=== PATIENT | female | born 1990 | race Caucasian/White ===

== ENCOUNTER 2017-10-22 13:56 | Emergency (ER) | payer BC, MEDICAID ==
[2017-10-22 15:17] LABS: BASO % 0.5 % (0.0-2.0); EOS # 0.5 K/uL (0.0-0.7); EOS % 6.4 % (0.0-4.0); HEMOGLOBIN 13.5 g/dL (11.0-16.0); LYMPH # 1.8 K/uL (1.0-4.3); LYMPH % 24.5 % (20.0-40.0); MEAN CELL VOLUME 84.9 fL (81.0-99.0); MEAN CORPUSCULAR HEMOGLOBIN 30.1 pg (27.0-31.0); MEAN CORPUSCULAR HGB CONC 35.4 g/dL (33.0-37.0); MEAN PLATELET VOLUME 7.7 fL (7.2-11.7); MONO # 0.4 K/uL (0.0-0.8); MONO % 5.4 % (0.0-10.0); NEUT # 4.6 K/uL (1.8-7.0); NEUT % 63.2 % (50.0-75.0); RBC 4.5 Mil/uL (3.80-5.20); WHITE BLOOD COUNT 7.3 K/uL (4.8-10.8)
[2017-10-22 15:30] LABS: HCG,QUALITATIVE URINE POSITIVE (NEGATIVE)
[2017-10-22 15:35] LABS: SQUAMOUS EPITHIAL 3 /hpf (0-5); URINE AMORPHOUS SEDIMENT RARE /ul (<OCC); URINE BACTERIA OCC (<OCC); URINE BILIRUBIN NEGATIVE (NEGATIVE); URINE BLOOD NEGATIVE (NEGATIVE); URINE CLARITY Hazy (Clear); URINE COLOR Yellow (YELLOW); URINE GLUCOSE (UA) NORMAL (Normal); URINE LEUKOCYTE ESTERASE NEG Leu/uL (Negative); URINE NITRATE NEGATIVE (NEGATIVE); URINE PROTEIN NEGATIVE (NEGATIVE)
[2017-10-22 15:37] LABS: BLOOD UREA NITROGEN 10 mg/dL (7-17); CALCIUM 8.7 mg/dl (8.6-10.4); GFR AFRICAN-AMERICAN > 60; GFR NON-AFRICAN AMERICAN > 60
--- NOTE | 2017-10-22 16:05 | US ---
PROCEDURE: OB Pelvic Ultrasound HISTORY: VAGINAL BLEEDING, PAIN COMPARISON: None available. FINDINGS: UTERUS: Single Live intrauterine gestation. CRL 3 mm, equal to 5 weeks 6 days Gestational sac diameter 13 mm equal to 5 weeks 4 days age (Ultrasound estimated): 5 weeks 5 days Date of delivery (Ultrasound estimated) : 06/19/2018 Heart rate: 104 bpm. Dulce Maria-gestational hemorrhage: None. Uterus measures 9.6 x 4.6 x 6.5 cm. No mass CERVIX: Long and closed. No cervical abnormality seen. RIGHT OVARY: Measures 3.5 x 2.6 x 2.3 cm. No mass. Normal flow. LEFT OVARY: Measures 4.8 x 1.7 x 2.5 cm. Corpus luteum cyst, 1.6 x 1.4 x 1.3 cm, with characteristic peripheral hypervascularity. Normal flow. FREE FLUID: None. OTHER FINDINGS: None. IMPRESSION: Single live intrauterine gestation of approximately 5 weeks 5 days gestational age. No subchorionic hemorrhage. heart rate 104 beats per minute. Cervix long and closed.
--- NOTE | 2017-10-22 16:08 | C.PDOC ---
History Of Present Illness 27 yo female , LNMP 08/07/17, no hx of ectopic , come in for evaluation of lower abdominal cramping pain associated with vaginal spotting gradually developed since yesterday. Pt admits, " vaginal spotting only noted in AM", reports resolved at this time.Otherwise, pt denies fever, chills, recent illness, CP, SOB, dyspnea, diaphoresis, V/D, back pain, UTI sx. Ambulate to Ed for evaluation, not in any apparent distress. Time Seen by Provider: 10/22/17 14:41 Chief Complaint (Nursing): Female Genitourinary History Per: Patient Past Medical History Reviewed: Historical Data, Nursing Documentation, Vital Signs Vital Signs: Last Vital Signs Temp 98.1 F 10/22/17 14:26 Pulse 70 10/22/17 14:26 Resp 17 10/22/17 14:26 BP 133/80 10/22/17 14:26 Pulse Ox 100 10/22/17 16:08 - Medical History PMH: No Chronic Diseases Surgical History: No Surg Hx Family History: States: Unknown Family Hx - Social History Hx Tobacco Use: No Hx Alcohol Use: No Hx Substance Use: No - Immunization History Hx Tetanus Toxoid Vaccination: No Hx Influenza Vaccination: No Hx Pneumococcal Vaccination: No Review Of Systems Except As Marked, All Systems Reviewed And Found Negative. Constitutional: Negative for: Fever, Chills ENT: Negative for: Throat Pain, Throat Swelling Cardiovascular: Negative for: Chest Pain, Palpitations Respiratory: Negative for: Cough, Shortness of Breath, Wheezing Gastrointestinal: Positive for: Abdominal Pain. Negative for: Nausea, Vomiting , Diarrhea Genitourinary: Negative for: Dysuria, Frequency, Incontinence, Vaginal Bleeding Musculoskeletal: Negative for: Neck Pain, Back Pain Skin: Negative for: Rash Neurological: Negative for: Weakness, Numbness, Altered Mental Status, Headache , Dizziness Physical Exam - Physical Exam Appears: Well, Non-toxic, No Acute Distress Skin: Normal Color, Warm, Dry, No Rash Head: Normacephalic Eye(s): bilateral: PERRL Nose: No Flaring, No Discharge Oral Mucosa: Moist Throat: Normal, No Erythema, No Drooling Neck: Trachea Midline, Supple Cardiovascular: Rhythm Regular, No Murmur, No JVD Respiratory: No Stridor, No Wheezing Gastrointestinal/Abdominal: Soft, No Tenderness, No Distention, No Guarding, No Rebound Back: No CVA Tenderness Extremity: Normal ROM, No Pedal Edema, No Deformity, No Swelling Neurological/Psych: Oriented x3, Normal Speech ED Course And Treatment - Laboratory Results Result Diagrams: 10/22/17 15:12 10/22/17 15:12 Lab Interpretation: Normal Urine POC: Positive O2 Sat by Pulse Oximetry: 100 Pulse Ox Interpretation: Normal - CT Scan/US US - Transvaginal Other Rad Studies (CT/US): Read By Radiologist, Radiology Report Reviewed CT/US Interpretation: PROCEDURE: OB Pelvic Ultrasound. HISTORY: VAGINAL BLEEDING, PAIN. COMPARISON: None available. FINDINGS: UTERUS: Single Live intrauterine gestation. CRL 3 mm, equal to 5 weeks 6 days. Gestational sac diameter 13 mm equal to 5 weeks 4 days. age (Ultrasound estimated): 5 weeks 5 days. Date of delivery (Ultrasound estimated) : 06/19/2018. Heart rate: 104 bpm. Dulce Maria-gestational hemorrhage: None. Uterus measures 9.6 x 4.6 x 6.5 cm. No mass. CERVIX: Long and closed. No cervical abnormality seen. RIGHT OVARY: Measures 3.5 x 2.6 x 2.3 cm. No mass. Normal flow. LEFT OVARY: Measures 4.8 x 1.7 x 2.5 cm. Corpus luteum cyst, 1.6 x 1.4 x 1.3 cm, with characteristic peripheral hypervascularity. Normal flow. FREE FLUID: None. OTHER FINDINGS: None. IMPRESSION: Single live intrauterine gestation of approximately 5 weeks 5 days gestational age. No subchorionic hemorrhage. heart rate 104 beats per minute. Cervix long and closed. Progress Note: On re-eval, pt is afebrile, hemodynamicaly stable. Non-toxic,. Ambulatory in ED with stable gait. Neck; Supple, (-) JVD. Lungs: CTA B/L, BS equal B/L. Abd: benign, (-) guarding, (-) rebound. Back: (-) CVA tenderness. Blood work review and appears normal. UA- normal. US results review (+) single IUP 5w5d, no acute findings. Beta quant review and c/w with US results. results review and discussed with pt. Pt has clinical findings c/w threatened . Pt advised. ref. to F/u with [facility]NAGER in 1-2 days for re- eavl. return to ED if any worsening or new changes. Disposition Counseled Patient/Family Regarding: Studies Performed, Diagnosis, Need For Followup - Disposition [facility] Disposition: HOME/ ROUTINE Disposition Time: 16:20 Condition: STABLE Additional Instructions: PELVIC REST, NO SEXUAL ACTIVITY FOR 1 WEEK VITAMINS FOLLOW UP WITH [facility] E[facility] MANAGER IN 2 DAYS FOR RE-EVALUATION. RETURN TO ED IF ANY WORSENING OR NEW CHANGES. Instructions: Threatened Miscarriage (ED) Forms: [email or web address] ([email or web address]) - Clinical Impression Clinical Impression: Threatened
[2017-10-22 17:01] VITALS: BP 132/77; PULSE 77; RESP 19; TEMP 98.9; O2SAT 99
== END 2017-10-22 17:00 | disposition home or self-care (01) ==
LOC: C.ER 13:56
DX: O20.0 Threatened abortion (principal); Z3A.01 Less than 8 weeks gestation of pregnancy

== ENCOUNTER 2018-05-10 09:41 | Emergency (ER) | payer BC ==
[2018-05-10 09:47] VITALS: RESP 16; TEMP 98; O2SAT 99
--- NOTE | 2018-05-10 10:31 | C.PDOC ---
History Of Present Illness 27 y/o female presents to the ED with complaints of right shoulder pain that began this morning. She denies any fall or blunt trauma. Patient states she picked up her child this morning, adjusted him toward her right side, and felt a pop in the shoulder. She is now complaining of shoulder pain and decreased ROM. Pain is described as non-radiating, rated 8/10, and worsening with movement. Time Seen by Provider: 05/10/18 09:41 Chief Complaint (Nursing): Upper Extremity Problem/Injury History Per: Patient History/Exam Limitations: no limitations Onset/Duration Of Symptoms: Hrs Current Symptoms Are (Timing): Still Present Severity: Moderate Pain Scale Rating Of: 8 Past Medical History Reviewed: Historical Data, Nursing Documentation, Vital Signs Vital Signs: Last Vital Signs Temp 98 F 05/10/18 09:45 Pulse 81 05/10/18 09:45 Resp 16 05/10/18 09:45 BP 121/79 05/10/18 09:45 Pulse Ox 99 05/10/18 10:55 Surgical History: No Surg Hx Family History: States: Unknown Family Hx - Social History Hx Tobacco Use: No Hx Alcohol Use: No Hx Substance Use: No - Immunization History Hx Tetanus Toxoid Vaccination: No Hx Influenza Vaccination: No Hx Pneumococcal Vaccination: No Review Of Systems Except As Marked, All Systems Reviewed And Found Negative. Cardiovascular: Negative for: Chest Pain Musculoskeletal: Positive for: Shoulder Pain (right). Negative for: Arm Pain, Hand Pain Skin: Negative for: Bruising Neurological: Negative for: Weakness, Numbness Physical Exam - Physical Exam Appears: Non-toxic, No Acute Distress Skin: Normal Color, Warm Head: Atraumatic, Normacephalic Eye(s): bilateral: Normal Inspection Neck: Normal ROM Back: No Vertebral Tenderness, Muscle Spasm (significant muscle spasms along the right trapezius) Extremity: Tenderness (to the right humoral head and distal end of right clavicle), Capillary Refill (less than 2 sec), No Deformity, No Swelling, Other (Decreased ROM secondary to pain, with full passive ROM of the shoulder) Pulses: Left Radial: Normal, Right Radial: Normal Neurological/Psych: Oriented x3, Normal Speech ED Course And Treatment O2 Sat by Pulse Oximetry: 99 (RA) Pulse Ox Interpretation: Normal Medical Decision Making Medical Decision Making: Impression: Right shoulder pain Initial Plan: --Motrin 600 mg PO --Right clavicle x-ray --Right shoulder x-ray Progress/Updates: X-rays viewed by me, and are negative for acute fracture or dislocation. Counseled patient regarding diagnosis and treatment plan. Patient will be discharged home with prescriptions for Motrin and Valium. Advised patient to follow up with PMD for further evaluation. Disposition Counseled Patient/Family Regarding: Studies Performed, Diagnosis, Need For Followup, Rx Given - Disposition Disposition: HOME/ ROUTINE Disposition Time: 10:53 Condition: STABLE Prescriptions: diaZEpam [Valium] 5 mg PO TID #12 tab Ibuprofen [Motrin] 600 mg PO TID #15 tab Instructions: Shoulder Sprain (DC) Forms: General Discharge Instructions, [facility] (Hebrew), Work Excuse - POA Present On Arrival: None - Clinical Impression Clinical Impression: Sprain of shoulder, right - Scribe Statement The provider has reviewed the documentation as recorded by the Scribe (Gabi Reed) Provider Attestation: All medical record entries made by the Scribe were at my direction and personally dictated by me. I have reviewed the chart and agree that the record accurately reflects my personal performance of the history, physical exam, medical decision making, and the department course for this patient. I have also personally directed, reviewed, and agree with the discharge instructions and disposition.
[2018-05-10 11:05] VITALS: BP 125/79; PULSE 69
--- NOTE | 2018-05-10 11:54 | RAD ---
Date of service: 05/10/2018 PROCEDURE: Radiographs of the right clavicle. HISTORY: pain and decreased motion COMPARISON: None. FINDINGS: RIGHT CLAVICLE: No fracture or focal lesion. JOINTS: Right acromioclavicular possible lateral clavicular tiny microcystic subcortical subarticular early arthrosis patient 27 years of age. Glenohumeral joints are grossly unremarkable. SOFT TISSUES: Grossly unremarkable. OTHER FINDINGS: None. IMPRESSION: No fracture or dislocation Possible lateral clavicular subcortical microcystic earlier arthrosis -versus a top normal variant.
--- NOTE | 2018-05-10 11:55 | RAD ---
Date of service: 05/10/2018 PROCEDURE: Radiographs of the Right Shoulder HISTORY: pain and decreased motion COMPARISON: No prior. FINDINGS: BONES: 2 mm rounded bone island over humeral head. No fracture. JOINTS: Right acromioclavicular possible lateral clavicular tiny microcystic subcortical subarticular early arthrosis patient 27 years of age. Glenohumeral joint- grossly unremarkable. SOFT TISSUES: Normal. OTHER FINDINGS: None. IMPRESSION: No fracture or dislocation. Right acromioclavicular possible lateral clavicular tiny microcystic subcortical subarticular early arthrosis patient 27 years of age. Glenohumeral joint-grossly unremarkable.
== END 2018-05-10 11:04 | disposition home or self-care (01) ==
LOC: C.ER 09:41
DX: S43.401A Unspecified sprain of right shoulder joint, initial encounter (principal); X58.XXXA Exposure to other specified factors, initial encounter

== ENCOUNTER 2018-08-01 13:10 | Emergency (ER) | payer BC ==
[2018-08-01 13:58] VITALS: TEMP 99.6; O2SAT 100
[2018-08-01] MEDS ORDERED: Sodium Chloride 0.9% 1,000 ML IV ONE (14:46)
--- NOTE | 2018-08-01 14:46 | C.PDOC ---
History Of Present Illness 27 year old female presents to the ED for evaluation of lower abdominal bloating since yesterday. Patient states symptoms are constant and localized. Patient states her "period should be coming soon." She denies nausea, vomiting, yamilet rrhea, UTI symptoms, or fever. LOWER ABD BLOATING SINCE YEST. CONSTANT LOCALIZED. PS "PERIOD SHOULD BE COMING SOON". NO NVD, UTI SX. NO FEVER EXAM MILD DIST NONTOXIC ABD +LLQ TEND MILD DIST SOFT NO RG REMAINDER NEG Time Seen by Provider: 08/01/18 14:10 Chief Complaint (Nursing): Abdominal Pain History Per: Patient History/Exam Limitations: no limitations Onset/Duration Of Symptoms: Hrs Current Symptoms Are (Timing): Still Present Location Of Pain/Discomfort: Other (lower abdomen ) Radiation Of Pain To:: None Quality Of Discomfort: Other (bloating ) Associated Symptoms: denies: Fever, Chills, Nausea, Vomiting, Diarrhea, Urinary Symptoms Additional History Per: Patient Past Medical History Reviewed: Historical Data, Nursing Documentation, Vital Signs Vital Signs: Last Vital Signs Temp 99.6 F 08/01/18 13:54 Pulse 99 H 08/01/18 13:54 Resp 20 08/01/18 13:54 BP 107/78 08/01/18 13:54 Pulse Ox 100 08/01/18 13:54 - Medical History PMH: No Chronic Diseases Surgical History: No Surg Hx Family History: States: Unknown Family Hx - Social History Hx Tobacco Use: No Hx Alcohol Use: No Hx Substance Use: No - Immunization History Hx Tetanus Toxoid Vaccination: No Hx Influenza Vaccination: No Hx Pneumococcal Vaccination: No Review Of Systems Constitutional: Negative for: Fever, Chills Gastrointestinal: Positive for: Other (lower abdominal bloating ). Negative for: Nausea, Vomiting, Diarrhea Genitourinary: Negative for: Dysuria, Frequency, Hematuria Physical Exam - Physical Exam Appears: Non-toxic, Other (in mild distress ) Skin: Normal Color, Warm, Dry Head: Atraumatic, Normacephalic Eye(s): bilateral: Normal Inspection Oral Mucosa: Moist Neck: Supple Chest: Symmetrical, No Deformity, No Tenderness Cardiovascular: Rhythm Regular, No Murmur Respiratory: Normal Breath Sounds, No Rales, No Rhonchi, No Wheezing Gastrointestinal/Abdominal: Soft, Tenderness (to left lower quadrant ), Distention (mild ), No Guarding, No Rebound Extremity: Normal ROM, Capillary Refill (less than 2 seconds ) Neurological/Psych: Oriented x3, Normal Speech, Normal Cognition ED Course And Treatment - Laboratory Results Result Diagrams: 08/01/18 14:56 08/01/18 14:56 O2 Sat by Pulse Oximetry: 100 (on RA) Pulse Ox Interpretation: Normal Progress Note: Bloodwork, urinalysis, CT A/P ordered and reviewed. Magnesium Sulfate IVP, Morphine IVP, Reglan IVP, Toradol IVP, and IV Fluids given. Progress - Re-Evaluation Re-evaluation Note: 08/01/18 17:11 MIGRAINE, ABD PAIN RESOLVED. CT REVIEWED - Data Reviewed Data Reviewed: Lab, Diagnostic imaging, Old records Disposition Counseled Patient/Family Regarding: Studies Performed, Diagnosis, Need For Followup, Rx Given - Disposition Referrals: YOUR,PMD [Other] Disposition: HOME/ ROUTINE Disposition Time: 17:11 Condition: IMPROVED Prescriptions: Metoclopramide [Reglan] 1 tab PO TID PRN #25 tab PRN Reason: Nausea/Vomiting Naproxen 500 mg PO BID #30 tab Instructions: Ovarian Cyst (DC) Forms: [employer] (Uruguayan), Work Excuse - Clinical Impression Clinical Impression: Abdominal bloating, Migraine, Ovarian cyst - Scribe Statement The provider has reviewed the documentation as recorded by the Scribe (Samantha Jain) Provider Attestation: All medical record entries made by the Scribe were at my direction and personally dictated by me. I have reviewed the chart and agree that the record accurately reflects my personal performance of the history, physical exam, [facility] decision making, and the department course for this patient. I have also personally directed, reviewed, and agree with the discharge instructions and disposition.
[2018-08-01] MEDS ORDERED: Sodium Chloride 0.9% 1,000 ML IV STA (14:52)
[2018-08-01] MEDS ORDERED: Magnesium Sulfate 1 gm in D5W 1 GM/100 ML BAG IVPB STA (14:52)
[2018-08-01 15:00] LABS: BASO % 0.2 % (0.0-2.0); EOS # 0.2 K/uL (0.0-0.7); EOS % 1.2 % (0.0-4.0); HEMOGLOBIN 13.4 g/dL (11.0-16.0); LYMPH # 1.2 K/uL (1.0-4.3); LYMPH % 7.9 % (20.0-40.0); MEAN CELL VOLUME 85.5 fL (81.0-99.0); MEAN CORPUSCULAR HGB CONC 33.9 g/dL (33.0-37.0); MEAN PLATELET VOLUME 8.3 fL (7.2-11.7); MONO # 0.7 K/uL (0.0-0.8); MONO % 4.6 % (0.0-10.0); NEUT # 12.7 K/uL (1.8-7.0); NEUT % 86.1 % (50.0-75.0); PLATELET COUNT 230 K/uL (130-400); RBC 4.61 Mil/uL (3.80-5.20); RED CELL DISTRIBUTION WIDTH 13.1 % (11.5-14.5); WHITE BLOOD COUNT 14.7 K/uL (4.8-10.8)
[2018-08-01 15:07] LABS: SQUAMOUS EPITHIAL 2 /hpf (0-5); URINE BILIRUBIN NEGATIVE (NEGATIVE); URINE BLOOD NEGATIVE (NEGATIVE); URINE CLARITY Clear (Clear); URINE COLOR Yellow (YELLOW); URINE GLUCOSE (UA) NORMAL (Normal); URINE LEUKOCYTE ESTERASE TRACE Leu/uL (Negative); URINE PROTEIN NEGATIVE (NEGATIVE); URINE UROBILINOGEN NORMAL mg/dL (0.2-1.0)
[2018-08-01] MEDS ORDERED: Sodium Chloride 0.9% 1,000 ML ONE (15:08)
[2018-08-01] MEDS ORDERED: Magnesium Sulfate 1 gm in D5W 1 GM/100 ML BAG IVPB ONE (15:08)
[2018-08-01 15:12] LABS: ALB/GLOB RATIO 1.4 (1.0-2.1); ALBUMIN 4.4 g/dL (3.5-5.0); ALT/SGPT 54 U/L (9-52); AST/SGOT 40 U/L (14-36); BLOOD UREA NITROGEN 9 mg/dL (7-17); CALCIUM 8.6 mg/dl (8.6-10.4); GFR NON-AFRICAN AMERICAN > 60; LIPASE 64 U/L (23-300)
[2018-08-01 15:38] LABS: EOSINOPHIL 1 % (0-4); LYMPHOCYTE 8 % (20-40); MONOCYTE 2 % (0-10); NEUTROPHIL 89 % (50-75); PLATELET ESTIMATE NORMAL (NORMAL); TOTAL CELLS COUNTED 100
[2018-08-01] MEDS ORDERED: Iodixanol 320 MG/ML 100 ML BOTTLE IV ONE (16:02)
--- NOTE | 2018-08-01 16:56 | CT ---
Date of service: 08/01/2018 PROCEDURE: CT Abdomen and Pelvis with contrast HISTORY: abd pain LLQ COMPARISON: Noncontrast CT AP performed 07/18/14 TECHNIQUE: Contrast dose: 100 cc Visipaque IV Radiation dose: Total exam DLP = 1135.89 mGy-cm. This CT exam was performed using one or more of the following dose reduction techniques: Automated exposure control, adjustment of the mA and/or kV according to patient size, and/or use of iterative reconstruction technique. FINDINGS: LOWER THORAX: Bibasilar atelectasis. No visible pleural effusion or pneumothorax. LIVER: Hypoattenuation of the liver compatible with hepatic steatosis. GALLBLADDER AND BILE DUCTS: Unremarkable. PANCREAS: Unremarkable. SPLEEN: Unremarkable. ADRENALS: Unremarkable. KIDNEYS AND URETERS: The kidneys enhance symmetrically. No hydronephrosis or obstructing calculus identified. VASCULATURE: No aortic aneurysm. No atherosclerotic calcification or mural plaque present. BOWEL: Stomach is nondistended. Lack of oral contrast limits evaluation for bowel pathology. Bowel loops appear within normal limits of caliber without evidence of obstruction. APPENDIX: The appendix appears within normal limits of caliber. No secondary signs of acute appendicitis. PERITONEUM: Small pelvic free fluid. No definite free air. LYMPH NODES: No bulky adenopathy identified. BLADDER: Unremarkable. REPRODUCTIVE: Uterus is present. Suspect bilateral ovarian cysts. BONES: No acute osseous abnormality is detected. OTHER FINDINGS: None. IMPRESSION: Probable bilateral ovarian cysts. Small pelvic free fluid. Suggest pelvic ultrasound for further evaluation. Hypoattenuation of the liver compatible with hepatic steatosis.
[2018-08-01 17:17] VITALS: BP 120/67; PULSE 90; RESP 18
== END 2018-08-01 17:36 | disposition home or self-care (01) ==
LOC: C.ER 13:10
DX: G43.909 Migraine, unspecified, not intractable, without status migrainosus (principal); R14.0 Abdominal distension (gaseous); N83.209 Unspecified ovarian cyst, unspecified side
CPT/HCPCS: 74177; 80053; 81001; 83690; 85025; 96365; 96375; 99284; J1885; J2270; J2765; J3475; J7030; Q9967